=== PATIENT | female | born 1985 | race Caucasian/White ===

== ENCOUNTER → 2017-10-05 | Outpatient (REF) | payer OTHER, BC | LOC: M LAB REF 18:33 | DX: D48.5 Neoplasm of uncertain behavior of skin (principal) | CPT/HCPCS: 88305 ==

== ENCOUNTER → 2019-08-24 | Outpatient (CLI) | payer BC, OTHER ==
[~2019-08-24] MED LIST: VENL100T PO
[2019-08-24 13:08] LABS: BASO % 0.4 % (0.0-1.0); EOS # 0.1 10^3/uL (0.0-0.5); EOS % 1.1 % (0.0-3.0); HEMATOCRIT 37.4 % (36.0-47.0); HEMOGLOBIN 11.2 g/dl (12.0-15.5); LYMPH # 3.2 10^3/uL (1.5-5.0); LYMPH % 44.5 % (24.0-44.0); MEAN CORPUSCULAR HEMOGLOBIN 25.3 pg (27.0-33.0); MEAN CORPUSCULAR HGB CONC 29.9 g/dl (32.0-36.5); MEAN CORPUSCULAR VOLUME 84.4 fl (80.0-96.0); MONO # 0.4 10^3/uL (0.0-0.8); MONO % 4.8 % (0.0-5.0); NEUTROPHILS # 3.5 10^3/uL (1.5-8.5); NEUTROPHILS % 48.9 % (36.0-66.0); PLATELET COUNT, AUTOMATED 290 10^3/uL (150-450); RED BLOOD COUNT 4.43 10^6/uL (4.00-5.40); WHITE BLOOD COUNT 7.2 10^3/uL (4.0-10.0)
[2019-08-24 16:35] LABS: BLOOD UREA NITROGEN 7 MG/DL (7-18); CREATININE FOR GFR 0.56 MG/DL (0.55-1.30); GLOMERULAR FILTRATION RATE > 60.0 (>60); GLUCOSE, FASTING 92 MG/DL (70-100); POTASSIUM SERUM 4.1 MEQ/L (3.5-5.1); SODIUM LEVEL 139 MEQ/L (136-145)
[2019-08-24 16:36] LABS: CARBON DIOXIDE LEVEL 28 MEQ/L (21-32); CHLORIDE LEVEL 105 MEQ/L (98-107)
[2019-08-24 16:37] LABS: ALT/SGPT 13 U/L (12-78); BILIRUBIN,TOTAL 0.4 MG/DL (0.2-1.0); CALCIUM LEVEL 9.1 MG/DL (8.5-10.1); TOTAL PROTEIN 7.3 GM/DL (6.4-8.2)
[2019-08-24 16:38] LABS: ALBUMIN 3.8 GM/DL (3.2-5.2); C REACTIVE PROTEIN QUANTITATIV < 0.30 MG/DL (0.00-0.30)
== END ==
LOC: M LAB 12:36
PROVIDERS: ATTEND Internal Medicine Gastroenterology
DX: R19.7 Diarrhea, unspecified (principal)

== ENCOUNTER → 2019-08-24 | Outpatient (REF) | payer OTHER | LOC: M LAB REF 11:28 | PROVIDERS: ATTEND Internal Medicine Gastroenterology | DX: R19.7 Diarrhea, unspecified (principal) ==

== ENCOUNTER 2019-10-03 10:14 | Day surgery (SDC) | payer BC, OTHER ==
[~2019-10-03] VITALS: Ht 170.2 cm; Wt 95.4 kg
[~2019-10-03 10:14] MED LIST changes: +NS 1,000 ML IV ONE
[2019-10-03] MEDS ORDERED: LIDOCAINE 2% INJ 100 MG/5 ML SDV (FOR ANES.) As Ordered ONE (11:37)
[2019-10-03] MEDS ORDERED: fentaNYL 100 MCG/2 ML INJECTION (J3010) As Ordered ONE (11:37)
[2019-10-03] MEDS ORDERED: propofoL 500 MG/50 ML VIAL As Ordered ONE (11:37)
--- NOTE | 2019-10-03 12:15 | ROOR ---
Patient Name: Joe Villa Procedure Date: 10/03/2019 11:33 AM Date of : 1985 Age: 33 Room: [facility] Gender: Female Note Status: Finalized Procedure: Upper Endoscopy + Biopsies Indications: Heartburn, Chest pain (non cardiac), Diarrhea Providers: Bertram Deleon MD Referring MD: Carmel Varma MD Requesting Provider: Medicines: Monitored Anesthesia Care Complications: No immediate complications. Procedure: Pre-Anesthesia Assessment: - The heart rate, respiratory rate, oxygen saturations, blood pressure, adequacy of pulmonary ventilation, and response to care were monitored throughout the procedure. The Endoscope was introduced through the mouth, and advanced to the second part of duodenum. The upper GI endoscopy was accomplished without difficulty. The patient tolerated the procedure well. Findings: The Z-line was irregular and was found 35 cm from the incisors. Multiple biopsies were obtained with cold forceps for evaluation to rule out Gomez's Esophagus randomly at the gastroesophageal junction. A small hiatal hernia was present. Evidence of a gastric bypass was found. A gastric pouch with a small size was found. The staple line appeared intact. The gastrojejunal anastomosis was characterized by healthy appearing mucosa. This was traversed. The [id number] limb was characterized by healthy appearing mucosa. Biopsies for histology were taken with a cold forceps for evaluation of celiac disease. The exam was otherwise without abnormality. Impression: - Z-line irregular, 35 cm from the incisors. - Small hiatal hernia. - Gastric bypass with a small-sized pouch and intact staple line. Gastrojejunal anastomosis characterized by healthy appearing mucosa. Biopsied. - The examination was otherwise normal. - Multiple biopsies were obtained at the gastroesophageal junction. - The examination was otherwise normal. Recommendation: - Patient has a contact number available for emergencies. The signs and symptoms of potential delayed complications were discussed with the patient. Return to normal activities tomorrow. Written discharge instructions were provided to the patient. - High fiber diet. - Discharge patient to home. - Await pathology results. - Telephone GI clinic for pathology results in 1 week. - The findings and recommendations were discussed with the patient's family. Bertram Deleon MD Bertram Deleon MD 10/03/2019 12:15:27 PM Electronically signed by Bertram Deleon MD Number of Addenda: 0 Note Initiated On: 10/03/2019 11:33 AM Estimated Blood Loss: Estimated blood loss: none.
--- NOTE | 2019-10-03 12:20 | ROOR ---
Patient Name: Joe Villa Procedure Date: 10/03/2019 11:33 AM Date of : 1985 Age: 33 Room: [facility] Gender: Female Note Status: Finalized Procedure: Total Colonoscopy to Cecum + ileoscopy + Bx Indications: Clinically significant diarrhea of unexplained origin Providers: Bertram Deleon MD Referring MD: Carmel Varma MD Requesting Provider: Medicines: Monitored Anesthesia Care Complications: No immediate complications. Procedure: Pre-Anesthesia Assessment: - The heart rate, respiratory rate, oxygen saturations, blood pressure, adequacy of pulmonary ventilation, and response to care were monitored throughout the procedure. The Colonoscope was introduced through the anus and advanced to the cecum, identified by appendiceal orifice and ileocecal valve. The colonoscopy was performed without difficulty. The patient tolerated the procedure well. The quality of the bowel preparation was excellent. Findings: The perianal and digital rectal examinations were normal. Non-bleeding internal hemorrhoids were found during retroflexion. The hemorrhoids were small and Grade I (internal hemorrhoids that do not prolapse). No other significant abnormalities were identified in a careful examination of the remainder of the colon. Biopsies for histology were taken with a cold forceps from the ascending colon, transverse colon and descending colon for evaluation of microscopic colitis. The exam was otherwise without abnormality. The terminal ileum appeared normal. Impression: - Non-bleeding internal hemorrhoids. - The examination was otherwise normal. - The examined portion of the ileum was normal. - Biopsies were taken with a cold forceps from the ascending colon, transverse colon and descending colon for evaluation of microscopic colitis. - The exam was otherwise normal to the cecum. Recommendation: - Patient has a contact number available for emergencies. The signs and symptoms of potential delayed complications were discussed with the patient. Return to normal activities tomorrow. Written discharge instructions were provided to the patient. - High fiber diet. - Discharge patient to home. - Continue present medications. - Await pathology results. - Telephone GI clinic for pathology results in 1 week. - Repeat colonoscopy at age 52 for screening purposes. - The findings and recommendations were discussed with the patient's family. Bertram Deleon MD Bertram Deleon MD 10/03/2019 12:19:46 PM Electronically signed by Bertram Deleon MD Number of Addenda: 0 Note Initiated On: 10/03/2019 11:33 AM Estimated Blood Loss: Estimated blood loss: none.
[2019-10-03 12:54] VITALS: BP 114/66
== END 2019-10-03 12:56 | disposition home or self-care (01) ==
LOC: M OPP 10:14
PROVIDERS: ATTEND Internal Medicine Gastroenterology
DX: K64.0 First degree hemorrhoids (principal); R19.7 Diarrhea, unspecified; K22.8 Other specified diseases of esophagus; K44.9 Diaphragmatic hernia without obstruction or gangrene; Z98.84 Bariatric surgery status; R12 Heartburn; R07.89 Other chest pain; Z79.899 Other long term (current) drug therapy
CPT/HCPCS: 43239; 45380; 88305; J3010

== ENCOUNTER → 2019-11-11 | Outpatient (CLI) | payer BC, OTHER ==
[~2019-11-11] MED LIST changes: -NS 1,000 ML IV ONE
--- NOTE | 2019-11-11 19:22 | REP ---
MRI OF THE RIGHT KNEE: HISTORY: Pain. Injury last summer. TECHNIQUE: Axial proton density fat saturation, sagittal proton density T2 STIR, water excitation, coronal proton density, proton density fat saturation. Menisci show no evidence of a tear. The cruciate and collateral ligaments are intact. The extensor mechanism is intact. The medial and lateral patellar retinacula are intact. 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 No osteochondral defect is seen. There is no bone marrow edema or occult fracture. There is a mild to moderate joint effusion. There is a suprapatellar plica. There is a tiny amount of fluid in the medial popliteal fossa. IMPRESSION: No evidence of internal derangement. Mild global chondromalacia. Mild to moderate joint effusion. Suprapatellar plica. Electronically Signed by Linwood Leung MD 11/11/2019 07:25 P
== END ==
LOC: M RAD 17:14
PROVIDERS: ATTEND Orthopaedic Surgery Sports Medicine
DX: M25.561 Pain in right knee (principal)

== ENCOUNTER → 2021-08-07 | Outpatient (REF) | payer OTHER ==
[2021-08-07 19:47] LABS: GC DNA AMPLIFICATION NEGATIVE (NEGATIVE)
== END ==
LOC: M LAB REF 17:08
PROVIDERS: ATTEND Nurse Practitioner Family
DX: B37.3 Candidiasis of vulva and vagina (principal)